=== PATIENT | female | born 2000 | race American Indian/Alaskan Native ===

== ENCOUNTER 2018-11-15 20:57 | Emergency (ER) | payer OTHER ==
--- NOTE | 2018-11-15 21:05 | Emergency Department Report ---
Blank Doc - Documentation Documentation: 17 y/o c/o of 1 week of chest pain and throbbing associated with one fainting episode of syncope today 1 hour ago. no past medical history. C/o of vomiting since friday too, last BM 1 week agol. Denies PMH or medicaiton William
[2018-11-15 21:26] LABS: Basophils # (Auto) 0.1 K/mm3 (0.0-0.1); Eosinophils % (Auto) 0.1 % (0.0-4.3); Hemoglobin 9.6 gm/dl (10.1-14.3); Lymphocytes # (Auto) 1.5 K/mm3 (1.2-5.4); Lymphocytes % (Auto) 14.2 % (13.4-35.0); Mean Corpuscular HGB Conc 31 % (30-34); Mean Corpuscular Volume 65 fl (79-97); Monocytes % (Auto) 9.7 % (0.0-7.3); Platelet Count 376 K/mm3 (140-440); Red Cell Distribution Width 20.4 % (13.2-15.2)
[2018-11-15 21:41] LABS: HCG Qualitative,Urine Negative (Negative)
[2018-11-15 21:45] LABS: Bacteria,Urine 1+ /HPF (Negative); Bilirubin,Urine NEG (Negative); Blood,Urine NEG (Negative); Color,Urine Yellow (Yellow); Mucus,Urine 1+ /HPF
[2018-11-15 22:01] LABS: Alanine Aminotransferase 10 units/L (7-56); Albumin 4.6 g/dL (3.9-5); BUN/Creatinine Ratio 11; Blood Urea Nitrogen 8 mg/dL (7-17); Calcium 9.4 mg/dL (8.4-10.2); Hemolysis Index 3
[2018-11-15] MEDS ORDERED: ZOFRAN IV ONE (23:09)
[2018-11-15] MEDS ORDERED: BENTYL IM ONE (23:09)
[2018-11-15] MEDS ORDERED: MORPHINE IV ONE (23:09)
[2018-11-15] MEDS ORDERED: PEPCID IV ONE (23:09)
[2018-11-15] MEDS ORDERED: D5NS 1,000 ML IV SCH (23:45)
--- NOTE | 2018-11-15 23:47 | XRay Report ---
PROCEDURE: XR ABD SERIES W CXR 1V HISTORY: abd pain no bm for 1 week FINDINGS: Frontal view of the chest was acquired as well as supine and erect views of the abdomen. The heart is normal in size. The lungs appear clear. In the abdomen, relatively little gas is seen in small bowel. Air is seen within colon of normal rachel primitivo. There is no free air. The patient does not appear to be constipated. IMPRESSION: No active disease in the chest No bowel obstruction This document is electronically signed by Tim Baca MD., November 15 2018 11:45:47 PM ET
--- NOTE | 2018-11-16 00:20 | Ultrasound Report ---
PROCEDURE: US ABDOMEN LIMITED TECHNIQUE: Ultrasound of the right upper quadrant obtained. HISTORY: epigastric pain COMPARISONS: None FINDINGS: Liver is normal in size. No focal hepatic lesion identified. Right kidney measures 8.8 cm. No evidence hydronephrosis in the right kidney. No gallstones visualized. No evidence for gallbladder wall thickening or pericholecystic fluid. Gallb ladder wall measures 1.6 mm. Common bile duct measures 3 mm. No evidence for intrahepatic or extra hepatic biliary ductal dilatati on. IMPRESSION: No gallstones visualized. No sonographic evidence for acute cholecystitis.. This document is electronically signed by Jesse Jimenez MD., November 16 2018 12:18:42 AM ET
--- NOTE | 2018-11-16 01:27 | Emergency Department Report ---
Vomiting/Diarrhea - HPI Chief Complaint: Chest Pain Stated Complaint: CHEST PAIN,FAINTING,VOMITING Time Seen by Provider: 11/15/18 21:03 Duration: 1 week Severity: moderate Nausea/Vomiting Severity: Moderate Diarrhea Severity: None Pain Location: Epigastric Pain Severity: Moderate Symptoms: No Watery Diarrhea, No Bloody diarrhea, No Fever, No Able to Tolerate Fluids (patient states she vomits every time she tries to eat or drink), No Recent Unusual Foods, No Recent Untreated Water, No Recent use of Antibiotics, No Family w/ Similar Symptoms, No Contacts w/ Similar Symptoms, No Rash, No Hem aturia, No Recent URI Symptoms ED Review of Systems ROS: Stated complaint: CHEST PAIN,FAINTING,VOMITING Other details as noted in HPI Comment: All other systems reviewed and negative ED Past Medical Hx - Past Medical History Previous Medical History?: No - Surgical History Past Surgical History?: No - Social History Smoking Status: Never Smoker Substance Use Type: None - Medications Home Medications: Home Medications Medication Instructions Recorded Confirmed Last Taken Type Famotidine [Pepcid] 40 mg PO QHS #10 tablet 11/16/18 Unknown Rx Ondansetron [Zofran Odt] 4 mg PO Q8HR #10 tab.rapdis 11/16/18 Unknown Rx traMADol [Ultram] 50 mg PO Q6HR PRN #12 tablet 11/16/18 Unknown Rx Vomiting Diarrhea Exam - Exam General: Vital signs noted. No distress. Alert and acting appropriately. HEENT: Yes Moist Mucous Membranes, No Pharyngeal Erythema, No Pharyngeal Exudates, No Rhinorrhea, No Conjuctival Injection, No Frontal Tenderness, No Maxillary Tenderness Neck: No Adenopathy, No Rigidity Lungs: Yes Clear Lung Sounds, Yes Good Air Exchange, No Wheezes, No Stridor, No Cough, No Nasal Flaring, No Retractions, No Use of Accessory Muscles Heart exam: Regular: Yes, Murmur: No, Tachycardia: No Abdomen: Tenderness: Yes (mild epigastric discomfort without rebound or guarding), Peritoneal Signs: No, Distention: No, Hyperactive Bowel sounds: No Skin exam: Rash: No, Edema: No, Normal turgor: Yes Neurologic: Alert and oriented, no deficits. Musculoskeletal: Unremarkable. ED Course Vital Signs 11/15/18 11/15/18 21:03 22:15 Temperature 98.3 F 99.2 F Pulse Rate 89 91 H Respiratory 18 18 Rate Blood Pressure 118/81 Blood Pressure 120/78 [Right] O2 Sat by Pulse 100 100 Oximetry ED Medical Decision Making - Lab Data Result diagrams: 11/15/18 21:13 11/15/18 21:13 Lab Results 11/15/18 11/15/18 11/15/18 Range/Units 21:10 21:13 21:13 WBC 10.5 (4.5-11.0) K/mm3 RBC 4.80 (3.65-5.03) M/mm3 Hgb 9.6 L (10.1-14.3) gm/dl Hct 31.0 (30.3-42.9) % MCV 65 L (79-97) fl MCH 20 L (28-32) pg MCHC 31 (30-34) % RDW 20.4 H (13.2-15.2) % Plt Count 376 (140-440) K/mm3 Lymph % (Auto) 14.2 (13.4-35.0) % [place] % (Auto) 9.7 H (0.0-7.3) % Eos % (Auto) 0.1 (0.0-4.3) % Baso % (Auto) 1.0 (0.0-1.8) % Lymph # 1.5 (1.2-5.4) K/mm3 [place] # 1.0 H (0.0-0.8) K/mm3 Eos # 0.0 (0.0-0.4) K/mm3 Baso # 0.1 (0.0-0.1) K/mm3 Seg Neutrophils % 75.0 H (40.0-70.0) % Seg Neutrophils # 7.9 H (1.8-7.7) K/mm3 Sodium 135 L (137-145) mmol/L Potassium 3.2 L (3.6-5.0) mmol/L Chloride 94.3 L (98-107) mmol/L Carbon Dioxide 22 (22-30) mmol/L Anion Gap 22 mmol/L BUN 8 (7-17) mg/dL Creatinine 0.7 (0.7-1.2) mg/dL Estimated GFR > 60 ml/min BUN/Creatinine Ratio 11 % Glucose 77 (65-100) mg/dL Calcium 9.4 (8.4-10.2) mg/dL Total Bilirubin 0.50 (0.1-1.2) mg/dL AST 18 (5-40) units/L ALT 10 (7-56) units/L Alkaline Phosphatase 65 (35-129) units/L Total Protein 8.2 (6.3-8.2) g/dL Albumin 4.6 (3.9-5) g/dL Albumin/Globulin Ratio 1.3 % Lipase 17 (13-60) units/L Urine Color Yellow (Yellow) Urine Turbidity Clear (Clear) Urine pH 5.0 (5.0-7.0) Ur Specific [place] 1.041 H (1.003-1.030) Urine Protein 100 mg/dl (Negative) mg/dL Urine Glucose (UA) Neg (Negative) mg/dL Urine Ketones 80 (Negative) mg/dL Urine Blood Neg (Negative) Urine Nitrite Neg (Negative) Ur Reducing Substances Not Reportable Urine Bilirubin Neg (Negative) Urine Ictotest Not Reportable Urine Urobilinogen 2.0 (<2.0) mg/dL Ur Leukocyte Esterase Mod (Negative) Urine WBC (Auto) 4.0 (0.0-6.0) /HPF Urine RBC (Auto) 4.0 (0.0-6.0) /HPF U Epithel Cells (Auto) 6.0 (0-13.0) /HPF Urine Bacteria (Auto) 1+ (Negative) /HPF Urine Mucus 1+ /HPF Urine HCG, Qual Negative (Negative) - Radiology Data [facility] [address] [place] [address] Ultrasound Report Signed Patient: CASE GASTON MR#: [id number] : 2000 Acct:[id number] Age/Sex: 17 / F ADM Date: 11/15/18 Loc: ED Attending Dr: Ordering Physician: SIMRAN GREGG MD Date of Service: 11/15/18 Procedure(s): US abdomen limited Accession Number(s): [id number] cc: SIMRAN GREGG MD PROCEDURE: US ABDOMEN LIMITED TECHNIQUE: Ultrasound of the right upper quadrant obtained. HISTORY: epigastric pain COMPARISONS: None FINDINGS: Liver is normal in size. No focal hepatic lesion identified. Right kidney measures 8.8 cm. No evidence hydronephrosis in the right kidney. No gallstones visualized. No evidence for gallbladder wall thickening or pericholecystic fluid. Gallbladder wall measures 1.6 mm. Common bile duct measures 3 mm. No evidence for intrahepatic or extra hepatic biliary ductal dilatation. IMPRESSION: No gallstones visualized. No sonographic evidence for acute cholecystitis.. This document is electronically signed by Erick Cornelius MD., November 16 2018 12:18:42 AM ET Transcribed By: МАРИНА Dictated By: ERICK CORNELIUS Electronically Authenticated By: ERICK CORNELIUS Signed Date/Time: 11/16/18 0020 DD/ 39 TD/TT: 11/15/18 2342 - Medical Decision Making Patient's ultrasound is negative for gallstones. Laboratory studies do not support issues with the liver gallbladder. Patient likely with a gastritis and after having nausea vomiting she likely became dehydrated with ketonuria. Patient was given D5 normal saline and is actually feeling much improved after fluid hydration and nausea medicines. Patient be discharged home with follow-up with primary care. Critical care attestation.: If time is entered above; I have spent that time in minutes in the direct care of this critically ill patient, excluding procedure time. ED Disposition Clinical Impression: Ketonuria, Dehydration Gastritis Qualifiers: Gastritis type: unspecified gastritis Chronicity: acute Gastritis bleeding: presence of bleeding unspecified Qualified Code(s): K29.00 - Acute gastritis without bleeding Disposition: DC-01 TO HOME OR SELFCARE Is pt being admited?: No Does the pt Need Aspirin: No Condition: Stable Instructions: Gastritis (ED), Dehydration (ED) Prescriptions: Famotidine [Pepcid] 40 mg PO QHS #10 tablet traMADol [Ultram] 50 mg PO Q6HR PRN #12 tablet PRN Reason: Pain Ondansetron [Zofran Odt] 4 mg PO Q8HR #10 tab.rapdis Referrals: [facility] [Provider Group] - 3-5 Days Time of Disposition: 01:26
[2018-11-16 01:47] VITALS: BP 116/76
== END 2018-11-16 01:52 | disposition home or self-care (01) ==
LOC: ED 20:57
DX: K29.70 Gastritis, unspecified, without bleeding (principal); E86.0 Dehydration; R82.4 Acetonuria
CPT/HCPCS: 36415; 74022; 76705; 80053; 81001; 81025; 83690; 85025; 93005; 93010; 96361; 96372; 96374; 96375; 99284; J0500; J2270; J2405; J7042